=== PATIENT | female | born 1955 | race Caucasian/White ===

== ENCOUNTER 2017-08-27 13:41 | Emergency (ER) | payer SELFPAY ==
[2017-08-27 13:49] VITALS: BMI 25.8
[2017-08-27 14:33] VITALS: BP 187/89
[2017-08-27] MEDS ORDERED: DILAUDID INJ IVP PRN (14:49)
--- NOTE | 2017-08-27 14:49 | DR.FBACK ---
HPI - Time Seen Time seen: 14:43 - PCP Primary Care Physician: NFD - Complaint Chief Complaint Doctor Comments: Patient states that she fell from a tree today and injured her low back and right hip. Chief Complaint:: PT C/O FALLING WHILE GOING [employer] AND FALLING AGAINST A TREE AND PT C/O HAVING RIGHT HIP AND BACK PAIN,, PT HAS STAGE 4 BONE CANCER ,,, THAT IS METS AND PT C/O THAT SHE DOES NOT HAVE A MED ,,,BR - Source History Provided: Patient - Mode of Arrival Mode of Arrival: Ambulatory - Timing Onset of Chief Complaint: 08/26/17 - Location Back Pain Location: BACK - Associated Signs and Symptoms Back Pain Symptoms: None Numbness: None Weakness: None PMH - PMH Past Medical History: No Past Medical History: Coronary Artery Disease Past Surgical History: Yes Surgical History: Angioplasty/Stents, Cholecystectomy, Hysterectomy Past Surgical History Comment: CARDIAC STENT, - Family History History of Family Medical Conditions: Yes Family Medical History: Cancer, [place] - Social History Does patient currently use any type of tobacco product: No Have you used tobacco products in the last 12 months: No Type of Tobacco Use: None Does any household member use tobacco: No Alcohol Use: None Do you use any recreational Drugs:: No Lives With: Family Lives Where: Home - infectious screening In the last 2 months have you had wt loss of >10#?: NO Have you had fever, night sweats or hemotysis?: No Have you traveled outside the country in the last 6 months?: No Isolation: Standard ROS - Review of Systems Eyes: No Symptoms Reported ENTM: No Symptoms Reported Respiratoy: No Symptoms Reported Cardiovascular: No Symptoms Reported Gastrointestinal/Abdominal: No Symptoms Reported Genitourinary: No Symptoms Reported Neurological: No Symptoms Reported Musculoskeletal: Hip (right) Integumentary: Other (abrasion right hip) Hematologic/Lymphatic: No Symptoms Reported Endocrine: No Symptoms Reported Psychiatric: No Symptoms Reported All Other Systems: Reviewed and Negative PE - Vitals Vital Signs: Temp Pulse Resp BP BP Pulse Ox 08/27/17 14:32 187/89 08/27/17 13:44 97.0 F L 86 20 201/98 97 04/24/16 19:14 146/79 - General General Appearance: Alert, In No Apparent Distress - Head Head Exam: Normal Inspection, Atraumatic - Eyes Eye exam: Normal Appearance, PERRL, EOMI - ENT ENT Exam: Normal Exam, Normal Oropharynx - Chest Chest Inspection: Normal Inspection, Symmetric Chest Wall Rise - Respiratory Respiratory Exam: Normal Lung Sounds Bilat Respiratory Exam: Bilateral Clear to Auscultation - Cardiovascular Cardiovascular Exam: Regular Rate, Normal Rhythm - Abdominal Exam Abdominal Exam: Normal Inspection, Normal Bowel Sounds Abdominal Tenderness: negative: RUQ, RLQ, LUQ, LLQ, Epigastrium, Suprapubic, Diffuse, Mild, Moderate, Severe, Other - Genitourinary External Exam: Female: Deferred : Speculum Exam (Female): Deferred : Bimanual Exam (female): Deferred - Extremities Extremities Exam: Normal Inspection - Back Back Exam: Normal Inspection - Neurological Neurological Exam: Alert, Oriented X3, CN II-XII Intact - Psychiatric Psychiatric Exam: Normal Affect, Normal Mood - Skin Skin Exam: Warm, Dry (Abrasion of right hip, contusion of mid low back.) Course - Treatment Treatment: Analgesic, anti-emetic - Reevaluation 1st: Improved - Education/Counseling Educated On: Treatment, Diagnosis, Prognosis, Needs for Follow Up ROR - XRAY XRAY Interpreted by: Radiologist (Right Hip: no definite fracture or dislocation. There is an area of subcortical lucency involving the lateral quadrant of the femoral head. No pathologic fracture is seen. Joint spaces in the hips are preserved and symmetric. Impression: No fracture identified Nonspecific lucency in the right femoral head could represent osteolytic process in view of the proveded history. Follow up imaging may be helpful if symtoms persist. CT Lumbar spine: Aklignment of the lumbar spine is maintained. No evidence for aucte fracture or subluxation can be idientifed. There is mild discogenic degenerative disease and facet arthropathy. There are tiny lytic lucencies within the bony pelvis favored to represent osteopenia vs less likely findings of metastitic disease or multiple myeloma but for which clinical correlation and follow up are recommended given the clinical history .Findings could be correlated with MRI, PET imaging, or bone scan on a routine outpatient nonemergent basis if clinically warranted. Desending aortic atherosclerosis is noted. The patient is status post cholecystectomy. Impression: No acute fracture or subluxation. Mild lumbar spondylosis. Probable finings of osteopenia within the bony pelvis vs less likely multiple myeloma or metastatic disease.) - Diagnosis Discharge Problem: Mild DJD Lumbar spine Contusion of right hip Qualifiers: Encounter type: initial encounter Qualified Code(s): S70.01XA - Contusion of right hip, initial encounter Osteopenia Qualifiers: Osteopenia location: lumbar spine Qualified Code(s): M85.88 - Other specified disorders of bone density and structure, other site - Discharge Plan Condition: Stable - Follow ups/Referrals Follow ups/Referrals: NFD,None [Primary Care Provider] - 3 days - Instructions
[2017-08-27] MEDS ORDERED: ZOFRAN INJ 4 MG VIAL IM ONE (14:50)
[2017-08-27] MEDS ORDERED: DILAUDID INJ IM ONE (14:57)
[2017-08-27] MEDS ORDERED: ZOFRAN INJ 4 MG VIAL ONE (14:58)
[2017-08-27] MEDS ORDERED: DILAUDID INJ ONE (14:59)
--- NOTE | 2017-08-27 15:37 | RAD ---
Examination right hip, two views History: Bone cancer, recent trauma Findings: No definite fracture or dislocation. There is an area of subcortical lucency involving the lateral quadrant of the femoral head. No pathologic fracture is seen. Joint spaces in the hips are pr eserved and symmetric. Impression: No fracture identified. Nonspecific lucency in the right femoral head could represent os teolytic process in view of the provided history. Follow-up imaging may be helpful if symptoms persis t. Reported By:
--- NOTE | 2017-08-27 15:42 | CT ---
HISTORY: Status post fall with back pain, stage IV lung and bone carcinoma Study: CT lumbar spine without contrast Comparison: April 24, 2016 Technique: Multiple axial images of the lumbar spine were obtained from the thoracolumbar junction t o the sacrum without the administration of IV contrast. Sagittal and coronal reformats were performe d and reviewed. AEC was utilized. Findings: Alignment of the lumbar spine is maintained. No evidence for acute fracture or subluxation can be id entified. There is mild discogenic degenerative disease and facet arthropathy. There are tiny lytic lucencies within the bony pelvis favored to represent osteopenia versus less likely findings of meta static disease or multiple myeloma but for which clinical correlation and follow-up are recommended g iven the clinical history. Findings could be correlated with MRI, PET imaging, or bone scan on a [facility] outpatient nonemergent basis if clinically warranted. Descending aortic atherosclerosis is noted . The patient is status post cholecystectomy. IMPRESSION: No acute fracture or subluxation. Mild lumbar spondylosis. Probable findings of osteopenia within the bony pelvis versus less likely multiple myeloma or metastatic disease. Reported By:
[2017-08-27] MEDS ORDERED: PHENERGAN INJ 25 MG IM ONE (15:57)
[2017-08-27] MEDS ORDERED: PHENERGAN INJ 25 MG ONE (15:59)
[2017-08-27 16:28] LABS: BILIRUBIN,URINE NEGATIVE (NEGATIVE); BLOOD/HEMOGLOBIN,URINE 1+ (NEGATIVE); GLUCOSE, URINE NEGATIVE (NEGATIVE); KETONES,URINE NEGATIVE (NEGATIVE); LEUKOCYTE ESTERASE ,URINE 1+ (NEGATIVE); NITRITES,URINE NEGATIVE (NEGATIVE); PH,URINE 6.5 (5.0 - 8.0); PROTEIN,URINE 1+ (NEGATIVE); UROBILINOGEN,URINE 1+ (NORMAL)
[2017-08-27 16:37] LABS: APPEARANCE,URINE CLOUDY (CLEAR); COLOR,URINE YELLOW (YELLOW)
[2017-08-27 16:48] LABS: AMORPHOUS SEDIMENT,UR TRACE /HPF (NEGATIVE); BACTERIA,URINE TRACE /HPF (NEGATIVE); MUCUS,URINE MODERATE /HPF (NEGATIVE); RBC,URINE 0-2 /HPF (NONE SEEN); SQUAMOUS EPITHELIAL CELL,UR NUMEROUS /HPF (NEGATIVE)
== END 2017-08-27 16:35 | disposition home or self-care (01) ==
LOC: ER 13:56
DX: S70.01XA Contusion of right hip, initial encounter (principal); M51.36 Other intervertebral disc degeneration, lumbar region; M85.88 Other specified disorders of bone density and structure, other site; W14.XXXA Fall from tree, initial encounter; Y92.9 Unspecified place or not applicable
CPT/HCPCS: 72131; 73501; 81001; 96372; 99282; 99284; J1170; J2405; J2550

== ENCOUNTER 2017-10-04 14:03 | Emergency (ER) | payer SELFPAY ==
[2017-10-04 14:15] VITALS: BP 142/68; BMI 26.9
--- NOTE | 2017-10-04 17:35 | DR.GENAD ---
HPI - PCP Primary Care Physician: NFD - HPI Comment HPI Comment: PAIN DIATES TO RT HIP. NO DYSURIA. NO TRAUMA. HISTORY METASTATIC LUNG DISEASE. NO FEVER. BOIL ON BUTTOCKS - Complaint/Symptoms Chief Complaint Doctors Comments: LOWER BACB PAIN. Chief Complaint:: pt c/o lower back pain radiating down right hip and leg. Pt was diagnosed with stage four lung cancer with mets to bone about 6 months ago and has not had treatment. Pt states she always has pain but it is much worse today. Pt also c/o boil on buttock that is very painful Self Treatment fo Chief Complaint: motrin at home with no relief - Nurses notes reviewed Nurses Notes Review: Yes - Source History Provided: Patient - Mode of Arrival Mode of Arrival: Ambulatory - Timing Onset of Chief Complaint: 10/04/17 Came on: Suddenly - Duration Duration: Constant Duration: Weeks - Severity Severity: Moderate PMH - PMH Past Medical History: Yes Past Medical History: Coronary Artery Disease Past Medical History Comment: Stage 4 lung cancer with mets to bone Past Surgical History: Yes Surgical History: Angioplasty/Stents, Cholecystectomy, Hysterectomy - Family History History of Family Medical Conditions: Yes Family Medical History: Cancer - Social History Does patient currently use any type of tobacco product: No Have you used tobacco products in the last 12 months: No Type of Tobacco Use: None Does any household member use tobacco: No Alcohol Use: None Do you use any recreational Drugs:: No Lives With: Family Lives Where: Home - infectious screening In the last 2 months have you had wt loss of >10#?: NO Have you had fever, night sweats or hemotysis?: No Have you traveled outside the country in the last 6 months?: No Isolation: Standard ROS - Review of Systems Constitutional: Weakness, Fatigue Eyes: No Symptoms Reported ENTM: No Symptoms Reported. negative: Ear Pain, Nose Discharge, Nose Congestion , Throat Pain Respiratoy: Non-Productive Cough, Short of Breath, Wheezing. negative: Hemoptysis Cardiovascular: Chest Pain Gastrointestinal/Abdominal: No Symptoms Reported Genitourinary: No Symptoms Reported Neurological: Weakness Musculoskeletal: Back Pain, Hip Integumentary: Change in Color, Other (BOIL ON BUTTOCKS) Hematologic/Lymphatic: No Symptoms Reported All Other Systems: Reviewed and Negative PE - Vital Signs Vitals: Temperature 98.6 F Pulse Rate 85 Respiratory Rate 87 Blood Pressure [Left Arm] 187/89 Blood Pressure 142/68 O2 Sat by Pulse Oximetry 95 - General Limitations: No Limitations General Appearance: Alert - Head Head Exam: Normal Inspection - Eyes Eye exam: Normal Appearance - ENT ENT Exam: Normal External Ear Exam External Ear Exam: Normal External Inspection TM/Canal Exam: Bilateral Normal Nose Exam: Normal Nose Exam Mouth Exam: Normal Inspection Throat Exam: Normal Inspection - Neck Neck Exam: Trachea Midline - Respiratory Respiratory Exam: Normal Lung Sounds Bilat Respiratory Exam: Bilateral Wheezing, Bilateral Rhonchi, Upper Wheezing, Upper Rhonchi, Lower Wheezing, Lower Rhonchi - Cardiovascular Cardiovascular Exam: Regular Rate, Normal Rhythm, Normal Heart Sounds - Abdominal Exam Abdominal Exam: Normal Bowel Sounds, Soft. negative: Tenderness - Extremities Extremities Exam: Tenderness (RT HIP) - Neurologic Neurological Exam: Alert, Oriented X3 - Psychiatric Psychiatric Exam: Normal Affect, Normal Mood - Skin Skin Exam: Erythema (ON BUTTOCK SLIGHT RED AREA WITHOUT OBVIOUS ABSCESS.) MDM - Differential Diagnosis Differential Diagnosis: BACK PAIN, SCIATICA, UTI Course - Treatment Treatment: SEE ORDERS. PATIENT DID NOT WISH TO HAVE U/A AND BACK XRAY DONE. IM PAIN MED GIVEN. SHE SIGN OUT AMA BEFORE EVALUATION COMPLETED. - Education/Counseling Education/Counseling: Patient, Education Educated On: Treatment, Diagnosis, Needs for Follow Up - Diagnosis Discharge Problem: Back pain - Discharge Plan Disposition: 01 HOME, SELF-CARE Condition: Stable - Follow ups/Referrals Follow ups/Referrals: NFD,None [Primary Care Provider] - 2 days Justice Oneil [STAFF PHYSICIAN] - 2 days - Instructions Instructions: Back Pain, Adult, [id number] Additional Instructions: RETURN TO ED IF WORSE.
[2017-10-04] MEDS ORDERED: ZOFRAN INJ 4 MG VIAL IM ONE (17:40)
[2017-10-04] MEDS ORDERED: DILAUDID INJ IM PRN (17:40)
[2017-10-04] MEDS ORDERED: ZOFRAN INJ 4 MG VIAL ONE (17:43)
[2017-10-04] MEDS ORDERED: DILAUDID INJ ONE (17:44)
== END 2017-10-04 17:55 | disposition home or self-care (01) ==
LOC: ER 14:25
DX: M54.5 Low back pain (principal)
CPT/HCPCS: 96372; 99282; J1170; J2405